=== PATIENT | male | born 1990 | race Two or more races ===

== ENCOUNTER 2018-12-10 20:47 | Emergency (ER) | payer OTHER ==
[2018-12-10 20:55] VITALS: BP 124/93
--- NOTE | 2018-12-10 21:49 | ED Physician Documentation ---
PD HPI UPPER EXT INJURY - Stated complaint Stated Complaint: LAC R MID FINGER - Chief complaint Chief Complaint: Laceration - History obtained from History obtained from: Patient - History of Present Illness Location: Right, Finger (middle finger dorsum, cut on meat seafood associate blade that he was reaching for in cabinet/drawer.) Where injury occurred: Home Timing - onset: Today (just [employer]) Timing - details: Abrupt onset Worsened by: Moving (hurts some and causes it to bleed again.) Associated symptoms: No: Weakness, Numbness Similar symptoms before: Has not had sx before Recently seen: Not recently seen Review of Systems Neurologic: denies: Focal weakness, Numbness, Near syncope PD PAST MEDICAL HISTORY - Past Medical History Past Medical History: No Musculoskeletal: None - Past Surgical History Past Surgical History: No - Present Medications Home Medications: Ambulatory Orders Medication Instructions Recorded Confirmed No Known Home Medications 12/10/18 12/10/18 - Allergies Allergies/Adverse Reactions: Allergies Allergy/AdvReac Type Severity Reaction Status Date / Time No Known Drug Allergies Allergy Verified 12/10/18 20:54 - Social History Does the pt smoke?: No Smoking Status: Never smoker Does the pt drink ETOH?: No Does the pt have substance abuse?: No - Immunizations Immunizations are current?: Yes PD ED PE NORMAL - Vitals Vital signs reviewed: Yes - General General: Alert and oriented X 3, No acute distress, Well developed/nourished - Derm Derm: Normal color, Warm and dry - Extremities Extremities: Other (right middle finger dorsum over DIP area with lac to fatty tissue without involvement of deep structures. Full extension. No nail involvement. ) - Neuro Neuro: Alert and oriented X 3, No motor deficit, No sensory deficit Results - Vitals Vitals: Oxygen O2 Source Room air Procedures - Laceration (location) right middle finger Length in cm: 1.4 Wound type: Linear, Into subcut fat, Clean. No: Contaminated Neurovascular status: Sensory intact, Motor intact Tendon involvement: Tendon intact. No: Tendon Injury Anesthesia: Lidocaine 2% (digital block) Skin layer closure: Nylon, Running, Size #-0 - enter number (4), Sutures - enter # (7) Other: Patient tolerated well, No complications, Dressing applied Complexity: Simple PD MEDICAL DECISION MAKING - ED course Complexity details: considered differential (wounds opens and bleeds with ROM. Needs sutures. ), d/w patient Departure - Departure Disposition: 01 Home, Self Care Clinical Impression: Finger laceration Qualifiers: Encounter type: initial encounter Finger: middle finger Damage to nail status: without damage Foreign body presence: without foreign body Laterality: right Qualified Code(s): S61.212A - Laceration without foreign body of right middle finger without damage to nail, initial encounter Condition: Stable Record reviewed to determine appropriate education?: Yes Instructions: ED Laceration Hand Follow-Up: Khadar Ruano ARNP [Primary Care Provider] - Comments: It is okay to wash and shower. Clean off the wound twice a day with soap and water, or peroxide and water. Apply some antibiotic ointment to it to keep it moist. Also to watch for signs of infection such as purulence, redness or increasing pain. Return to your primary care or the ER at the specified time for suture removal. Suture removal 10 days. Tylenol or ibuprofen as needed for pains. Avoid very firm use of the fingertips but otherwise fairly normal activity of the hand is okay. Discharge Date/Time: 12/10/18 22:59
[2018-12-10] MEDS ORDERED: IBUPROFEN 600 MG TABLET PO STA (22:49)
[2018-12-10] MEDS ORDERED: HYDROcod/ACETAM 5/325 MG TABLET PO STA (22:50)
[2018-12-10] MEDS ORDERED: BACITRACIN OINT TOP ONE (22:58)
== END 2018-12-10 22:59 | disposition home or self-care (01) ==
LOC: ED 20:47
DX: S61.212A Laceration without foreign body of right middle finger without damage to nail, initial encounter (principal); W29.0XXA Contact with powered kitchen appliance, initial encounter; Y92.009 Unspecified place in unspecified non-institutional (private) residence as the place of occurrence of the external cause
CPT/HCPCS: 12001; 99282; 99283; A9270

== ENCOUNTER 2019-02-10 11:14 | Day surgery (SDC) | payer OTHER ==
[2019-02-10] MEDS ORDERED: LACTATED RINGERS 1,000 ML IV ONE (11:55)
[2019-02-10] MEDS ORDERED: MIDAZOLAM 2 MG/2 ML VIAL IVP ONE (12:59)
[2019-02-10] MEDS ORDERED: fentaNYL 250 MCG/5 ML VIAL IVP ONE (12:59)
[2019-02-10 13:52] VITALS: BP 116/73
== END 2019-02-10 11:15 | disposition home or self-care (01) ==
LOC: SDS 11:14
PROVIDERS: ATTEND Internal Medicine
PROC: 0DJD8ZZ Inspection of Lower Intestinal Tract, Via Natural or Artificial Opening Endoscopic (ICD-10-PCS; principal; 2019-02-10 12:30)
DX: R19.4 Change in bowel habit (principal); R10.9 Unspecified abdominal pain; R14.0 Abdominal distension (gaseous); K92.1 Melena; K64.8 Other hemorrhoids; K21.9 Gastro-esophageal reflux disease without esophagitis
CPT/HCPCS: 45378; J3010; J7120

== ENCOUNTER 2019-04-14 09:12 | Day surgery (SDC) | payer OTHER ==
[2019-04-14] MEDS ORDERED: LACTATED RINGERS 1,000 ML IV ONE (09:16)
[2019-04-14] MEDS ORDERED: MIDAZOLAM 2 MG/2 ML VIAL IVP ONE (11:29)
[2019-04-14] MEDS ORDERED: fentaNYL 100 MCG/2 ML VIAL IVP ONE (11:29)
[2019-04-14 12:37] VITALS: BP 109/62
== END 2019-04-14 09:13 | disposition home or self-care (01) ==
LOC: SDS 09:12
PROVIDERS: ATTEND Internal Medicine
PROC: 0DB68ZX Excision of Stomach, Via Natural or Artificial Opening Endoscopic, Diagnostic (ICD-10-PCS; 2019-04-14)
PROC: 0DB98ZX Excision of Duodenum, Via Natural or Artificial Opening Endoscopic, Diagnostic (ICD-10-PCS; principal; 2019-04-14 10:30)
DX: R19.7 Diarrhea, unspecified (principal); R10.9 Unspecified abdominal pain; K21.9 Gastro-esophageal reflux disease without esophagitis; R19.4 Change in bowel habit
CPT/HCPCS: 43239; J7120

== ENCOUNTER 2019-08-12 19:03 | Emergency (ER) | payer OTHER ==
[2019-08-12] MEDS ORDERED: HYDROmorphone 1 MG/ML CARPUJECT IM STA (19:27)
[2019-08-12] MEDS ORDERED: LORazepam 2 MG/ML VIAL IM STA (19:27)
--- NOTE | 2019-08-12 19:29 | ED Physician Documentation ---
History of Present Illness - Stated complaint Stated Complaint: RT FACIAL PX - Chief complaint Chief Complaint: Heent - History obtained from History obtained from: Patient - History of Present Illness Timing: Today (All day today he felt like the right side of his jaw popped and he cannot close it. This is never happened before with pain that severe radiating towards the right ear.) Review of Systems Constitutional: reports: Reviewed and negative Throat: reports: Reviewed and negative Cardiac: reports: Reviewed and negative PD PAST MEDICAL HISTORY - Past Medical History Past Medical History: Yes Cardiovascular: None Respiratory: None Endocrine/Autoimmune: None GI: GERD, Chronic diarrhea, Chronic constipation, Other : None HEENT: None Psych: None Musculoskeletal: None Derm: None - Past Surgical History Past Surgical History: No - Present Medications Home Medications: Ambulatory Orders Medication Instructions Recorded Confirmed Dicyclomine [Bentyl] 2 tab PO TID 02/10/19 Ergocalciferol [Vitamin D2] 1 tab PO DAILY 02/10/19 04/14/19 Omeprazole 1 tab PO DAILY 02/10/19 04/14/19 Hydrocodone/Acetaminophen 1 - 2 each PO Q6H PRN #10 tablet 08/12/19 [Hydrocodon-Acetaminophen 5-325] - Allergies Allergies/Adverse Reactions: Allergies Allergy/AdvReac Type Severity Reaction Status Date / Time No Known Drug Allergies Allergy Verified 08/12/19 19:20 - Social History Does the pt smoke?: No Smoking Status: Never smoker Does the pt drink ETOH?: No Does the pt have substance abuse?: No - Immunizations Immunizations are current?: Yes - POLST Patient has POLST: No PD ED PE NORMAL - Vitals Vital signs reviewed: Yes - General General: Alert and oriented X 3, No acute distress - HEENT HEENT: Other (There is no tenderness about the TMJs, he can open the mouth but he cannot close it all the way and there is some asymmetry of the jaw with it being deviated to the left.) - Neck Neck: Supple, no meningeal sign, No bony TTP - Neuro Neuro: Alert and oriented X 3, Normal speech Results - Vitals Vitals: Vital Signs - 24 hr 08/12/19 19:14 Temperature 36.6 C Heart Rate 81 Respiratory 17 Rate Blood Pressure 146/86 H O2 Saturation 97 Oxygen O2 Source Room air Procedures - General procedure General procedure: After the administration of a milligram of Dilaudid for pain and a milligram of Ativan for anxiolysis the jaw was reduced with success. He was still having some TMJ pain but the alignment was better and he could close his jaw all the way. Departure - Departure Disposition: 01 Home, Self Care Clinical Impression: TMJ dislocation Qualifiers: Encounter type: initial encounter Qualified Code(s): S03.00XA - Dislocation of jaw, unspecified side, initial encounter Condition: Good Record reviewed to determine appropriate education?: Yes Instructions: ED Dislocation Mandible Prescriptions: Hydrocodone/Acetaminophen [Hydrocodon-Acetaminophen 5-325] 1 - 2 each PO Q6H PRN #10 tablet PRN Reason: pain Comments: You were seen today for a dislocation of the right TMJ joint which was reduced after some medications. I recommend following up with your oral maxillofacial surgeon for this. Do not drink or drive tonight or with the prescription pain medications. Return if worse. Forms: Activity restrictions
[2019-08-12 20:03] VITALS: BP 127/74
[2019-08-12] MEDS ORDERED: HYDROcod/ACET 5/325 Prepack 4 PO STA (20:03)
== END 2019-08-12 20:17 | disposition home or self-care (01) ==
LOC: ED 19:03
DX: S03.01XA Dislocation of jaw, right side, initial encounter (principal); X58.XXXA Exposure to other specified factors, initial encounter
CPT/HCPCS: 21480; 99283; J1170; J2060; 96372

== ENCOUNTER 2020-06-20 07:03 | Outpatient (CLI) | payer OTHER ==
[2020-06-20] MEDS ORDERED: GADOBUTROL 10 MMOL/10 ML VIAL ONE (08:39)
[2020-06-20] MEDS ORDERED: GADOBUTROL 10 MMOL/10 ML VIAL IVP ONE (10:31)
--- NOTE | 2020-06-20 12:12 | MRI Report ---
PROCEDURE: Wrist LT W/WO INDICATIONS: LT WRIST JOINT DISORDERS CONTRAST: IV CONTRAST: Gadavist ml: 8 TECHNIQUE: Noncontrast coronal proton density fast spin echo and T2 fast spin echo with fat saturation; coronal 3-D gradient echo, axial T1 spin echo and T2 fast spin echo with fat saturation, axial T1 spin echo w ith fat saturation, sagittal T1 spin echo through the wrist. Post-contrast axial, coronal, and sagit bert T1 spin echo with fat saturation through the wrist. COMPARISON: None FINDINGS: Image quality: Excellent. Bones and cartilage: No suspicious osseous enhancement. The carpal bones are normally aligned. No bone marrow contusion or edema. No evidence for fracture or avascular necrosis. Overlying cartilag e surfaces appear normal. Carpal ligaments: The scapholunate and lunotriquetral ligaments appear intact. In the absence of in tra-articular contrast, the extrinsic carpal ligaments are not well evaluated bladder grossly unremar kable. On sagittal images, the pisohamate ligament appears intact. Triangular fibrocartilage complex: The triangular fibrocartilage appears intact. The adjacent menis marixa homolog appears normal in the absence of intra-articular contrast. The extensor carpi ulnaris te ndon is normal in location and morphology. Tendons and soft tissues: No suspicious soft tissue enhancement. The carpal tunnel structures appea r normal, including the median nerve. The ulnar nerve appears normal within Guyon?s canal. There is thickening and increased T2 signal of the extensor carpi ulnaris, beginning at the level of the ulna r styloid and extending distally to the insertion. Small volume adjacent fluid is present. There is a lso low T1 and T2 signal thickening of the extensor digitorum without adjacent fluid. Remaining tendo n compartments demonstrate normal morphology with no pathologic tendon sheath fluid or tendon signal. Small approximately 6 mm ganglion cyst near the lateral and posterior aspect of the of the radiocarp al joint (series 501 image 11 and series 601 image 15). IMPRESSION: Mild extensor digitorum tenosynovitis with thickening likely reflecting chronic tendinosis/tenosynovi tis, at the patient's area of pain. Small approximately 6 mm ganglion cyst near the lateral and posterior aspect of the of the radiocarpa l joint, near the patient's area of pain although this is not favored because of the patient's sympto ms. Moderate tendinosis of the extensor carpi ulnaris without kory tear. No finding in the extensor tendon compartment corresponding to the patient's pain. Reviewed by: Mario Alberto Solomon MD on 06/20/2020 12:10 PM PDT Approved by: Mario Alberto Solomon MD on 06/20/2020 12:10 PM PDT Station ID: [id number]
== END 2020-06-20 07:04 | disposition home or self-care (01) ==
LOC: DI 07:03
PROVIDERS: ATTEND Orthopaedic Surgery
DX: M65.88 Other synovitis and tenosynovitis, other site (principal); M67.432 Ganglion, left wrist; M67.834 Other specified disorders of tendon, left wrist
CPT/HCPCS: 73223; A9585